=== PATIENT | male | born 1945 | race Caucasian/White ===

== ENCOUNTER 2016-03-11 12:41 | Inpatient (IN) | payer MEDICARE ==
[2016-03-11] MEDS ORDERED: IOPAMIDOL 300 (61%) 150 ML VIAL IV ONE (12:42)
[2016-03-11] MEDS ORDERED: SODIUM CHLORIDE 0.9% 2,000 ML ONE (12:55)
[2016-03-11] MEDS ORDERED: MORPHINE SULFATE 4 MG/ML SYRINGE ONE ×2 (13:13→15:36)
[2016-03-11] MEDS ORDERED: ONDANSETRON 4 MG/2ML 2 ML VIAL ONE (13:13)
[2016-03-11 13:21] LABS: ABSOLUTE NEUTROPHIL COUNT 16.4 K/mm3 (1.8-7.7); BASO % 0.2 % (0.2-1.0); HEMATOCRIT 48.7 % (32.0-52.0); HEMOGLOBIN 16.9 gm/l (14.0-18.0); IMM NEUT # 0.1 K/mm3 (0-0.2); IMM NEUT% 0.5 % (0-1); LYMPH # 0.9 (1.0-4.8); LYMPH % 4.7 % (15-45); MEAN CELL VOLUME 96.2 fl (80.0-94.0); MEAN CORPUSCULAR HEMOGLOBIN 33.4 pg (27.0-31.0); MEAN CORPUSCULAR HGB CONC 34.7 g/dl (33.0-37.0); MEAN PLATELET VOLUME 9.8 fl (7.4-10.4); MONO # 1.6 (0.0-0.8); MONO % 8.4 % (4-12); NEUT % 86.2 % (43-75); PLATELET COUNT 280 K/mm3 (130-400)
[2016-03-11 13:32] LABS: ALBUMIN 4.2 gm/dL (3.5-5.7); CALCIUM 11.3 mg/dL (8.6-10.3)
--- NOTE | 2016-03-11 14:56 | CT ---
NECK CT WITH CONTRAST HISTORY: Sore throat and abdominal pain. Following the administration of 125 mL of Isovue-300intravenous contrast, contiguous axial images were acquired from the the level of the lateral ventricles, to the level of the du. COMPARISON: None. FINDINGS: PHARYNX: No gross mass effect.. No retropharyngeal or parapharyngeal edema. LARYNX: Symmetric appearance, without abnormal enhancing lesion. PAROTID AND SUBMANDIBULAR GLANDS: No dominant focal lesion. THYROID GLAND: No focal lesion noted.. CERVICAL LYMPH NODES: No abnormally enlarged lymph nodes by radiologic size criteria. VISIBLE LUNGS: Limited assessment due to respiratory motion artifact there are findings of bronchial wall thickening with minor bulla formation of the right upper lobe. There is suggestion of minor airspace in bronchiolar type abnormality of the right upper lobe. VISIBLE MEDIASTINUM: Abnormal thickening of the esophagus with stranding of adjacent mediastinal fat which suggests a diffuse esophagitis, distal esophageal thickening is present on concurrent abdominal CT. VISIBLE INTRACRANIAL COMPARTMENT: No gross mass effect or abnormal enhancement. MAJOR VASCULAR STRUCTURES: Diminutive appearance of the upper internal jugular veins, of uncertain significance. Minor atherosclerotic calcification at the carotid bifurcations. OSSEOUS STRUCTURES: Focal cervical disc degeneration at C3-4. IMPRESSION: 1. No obvious pharyngeal or laryngeal mass. No regional abscess identified. Airway patent. 2. Diffuse esophageal wall thickening, correlate for esophagitis. The current study does not exclude an ulcerative lesion. Consider endoscopic correlation. The entirety of the esophagus is not depicted on this study. 3. Incompletely depicted bronchiolar and airspace type abnormality of the right upper lobe, early changes of right upper lobe pneumonia are possible. Bronchial wall thickening compatible with bronchitis. 4. Focal disc degeneration at the C3-4 level with prominent degeneration at the left C3-4 facet joint with irregularity of margins suggesting inflammatory facet arthropathy. 5. Minor atherosclerotic calcifications of carotid vasculature. Results were electronically transmitted to the electronic medical record at 03/11/2016 1452 hours.
--- NOTE | 2016-03-11 15:10 | CT ---
CT ABDOMEN AND PELVIS WITH CONTRAST HISTORY: Sore throat and abdominal pain. TECHNIQUE: Following intravenous administration of 125 mL Isovue-300, contiguous axial images were acquired from the lung bases to the ischial tuberosities. Oral contrast was not administered. COMPARISON:None. FINDINGS: LUNG BASES: No gross airspace consolidation or pleural effusion. Fibrotic atelectatic change of the lung bases with multiple small bullae identified. Note is made of distal esophageal wall thickening with inflammatory change, associated ulceration is possible. Small hiatal hernia. LIVER: Fatty infiltration of the liver. Dystrophic perihepatic calcifications. SPLEEN: No focal lesion. PANCREAS: No focal lesion. ADRENAL GLANDS: No mass effect. KIDNEYS: Heterogeneously enhancing 2.5 cm solid mass lesion of the upper left renal pole, worrisome for possible neoplasm. Multiple renal cysts measuring up to 1.9 cm on the left, exophytic cyst measuring 0.2 cm on the right. No collecting system dilatation 3 mm nonobstructive calculus of the left lower renal pole. GALLBLADDER: Endometrial versus irregular thickening, cholelithiasis or mass lesion are possible BOWEL: Decompression of large bowel limits evaluation. No small bowel dilatation is identified there is a postsurgical appearance of the colon correlate for partial colectomy and ileocolic anastomosis. PELVIC ORGANS: No gross mass effect. Small right posterolateral bladder diverticulum. FREE FLUID: No gross free fluid identified. Inguinal regions: Fatty inguinal hernia formation. ABDOMINOPELVIC LYMPH NODES: No abnormally enlarged lymph nodes identified. ABDOMINAL AORTA: Minor atherosclerotic calcifications without aneurysmal dilatation. OSSEOUS STRUCTURES: Disc degeneration with right paracentral herniation at L3-4 bulging at L4-5 canal stenosis levels. Prominent disc degeneration at L5-S1. Abnormal sclerotic lesion of the left femoral head, osteonecrosis is possible. IMPRESSION: 1. Abnormal wall thickening of the distal esophagus and a hiatal hernia, correlate for gastroesophagitis. Consider eventual endoscopic correlation. 2. Apparent solid 2.5 cm mass lesion of the left kidney, worrisome for neoplasm. Additional renal cysts and 3 mm nonobstructive left renal calculus. 3. Dependent content within the gallbladder, cholelithiasis and soft tissue lesion are possible. 4. Evidence of prior partial colectomy and ileocolonic anastomosis. Fluid within the colon may indicate diarrhea. 5. Lumbar spondylosis with multilevel disc degeneration and prominent canal stenosis at L3-4 and L4-5. 6. Irregular sclerotic lesion of the left femoral head raising the possibility of osteonecrosis. 7. Fibrotic changes at the bases of lungs with multifocal bulla formation. 8. Aortic atherosclerotic disease without aneurysmal dilatation. Findings discussed with Dr. Jaimes of the Emergency Medicine clinical service on 03/11/2016 at 1506 hours.
[2016-03-11] MEDS ORDERED: CEFTRIAXONE 1 GRAM DUPLEX 50 ML IV ONE (15:13)
[2016-03-11] MEDS ORDERED: AZITHROMYCIN 500 MG VIAL ONE (15:13)
[2016-03-11] MEDS ORDERED: SODIUM CHLORIDE 0.9% 1,000 ML ONE (15:36)
--- NOTE | 2016-03-11 16:36 | RAD ---
PORTABLE CHEST RADIOGRAPH HISTORY: Vomiting. Frontal portable chest radiograph dated 03/11/2016. COMPARISON: 12/25/2013. FINDINGS: FOCAL AIRSPACE OPACITY: No gross airspace consolidation. PLEURAL EFFUSION: None. CARDIOMEDIASTINAL SILHOUETTE: Nonenlarged. PNEUMOTHORAX: None identified. OSSEOUS STRUCTURES: No grossly destructive lesions. IMPRESSION: No acute cardiopulmonary process noted.
[2016-03-11] MEDS ORDERED: MENTHOL/CETYLPYRD 1 EACH LOZENGE PO PRN (17:06)
[2016-03-11] MEDS ORDERED: MAGNESIUM HYDROXIDE 30 ML UDCUP PO PRN (17:06)
[2016-03-11] MEDS ORDERED: BISACODYL 5 MG TABLET.EC PO PRN (17:06)
[2016-03-11] MEDS ORDERED: BISACODYL 10 MG SUP PR PRN (17:06)
[2016-03-11] MEDS ORDERED: SODIUM CHLORIDE 0.9% 100 ML IV PRN (17:06)
[2016-03-11] MEDS ORDERED: BLISTEX LIPSTICK 1 EACH TP PRN (17:06)
[2016-03-11] MEDS ORDERED: ALBUTEROL NEB 2.5 MG/3 ML VIAL.NEB NEB PRN (17:10)
[2016-03-11 17:23] LABS: ABSOLUTE NEUTROPHIL COUNT 12.7 K/mm3 (1.8-7.7); BASO % 0.1 % (0.2-1.0); HEMATOCRIT 44.4 % (32.0-52.0); HEMOGLOBIN 15.1 gm/l (14.0-18.0); IMM NEUT # 0.1 K/mm3 (0-0.2); IMM NEUT% 0.3 % (0-1); LYMPH # 0.4 (1.0-4.8); MEAN CELL VOLUME 98.4 fl (80.0-94.0); MEAN CORPUSCULAR HEMOGLOBIN 33.5 pg (27.0-31.0); MEAN PLATELET VOLUME 9.3 fl (7.4-10.4); MONO # 1.1 (0.0-0.8); MONO % 7.3 % (4-12); NEUT % 89.3 % (43-75); PLATELET COUNT 223 K/mm3 (130-400); RED CELL DISTRIBUTION WIDTH 12.9 % (11.5-14.5)
[2016-03-11] MEDS: PANTOPRAZOLE SODIUM 40 MG VIAL IV SCH (17:41)
[2016-03-11] MEDS ORDERED: AZITHROMYCIN 250 MG in SODIUM CHLORIDE 0.9% 250 ML IV SCH (18:00)
[2016-03-11 18:03] LABS: CALCIUM 9.2 mg/dL (8.6-10.3)
[2016-03-11 18:19] LABS: BAND 3 % (0-10); BASOPHIL 0 % (0-1); EOSINOPHIL 0 % (1-3); LYMPHOCYTE 6 % (15-45); MONOCYTE 4 % (4-12); NEUTROPHILS 87 % (43-75); PLATELET ESTIMATE NORMAL (NORMAL); TOTAL CELLS COUNTED 100
[2016-03-11] MEDS ORDERED: POTASSIUM CHLORIDE 40 MEQ in SODIUM CHLORIDE 0.9% 500 ML IV ONE (18:30)
[2016-03-11] MEDS ORDERED: SODIUM CHLORIDE 0.9% 1,000 ML IV SCH (18:30)
[2016-03-11] MEDS: HYDROMORPHONE HCL 1 MG/ML SYRINGE IV PRN (19:08)
[2016-03-11] MEDS: ONDANSETRON 4 MG/2ML 2 ML VIAL IV PRN ×2 (19:09→23:34)
[2016-03-11] MEDS: MULTIVITAMINS 10 ML, FOLIC ACID 2 MG, MAGNESIUM SULFATE 1 G/2 ML 2 G, THIAMINE HCL 100 ... IV SCH ×5 (19:31)
[2016-03-11] MEDS: SODIUM CHLORIDE 0.9% 1,000 ML IV SCH (19:48)
[2016-03-11] MEDS: MAGNESIUM SULFATE 1 G/100 ML 1 G in PREMIX BAG 1 EACH IV SCH ×2 (19:58→20:50)
[2016-03-12] MEDS: SODIUM CHLORIDE 0.9% 1,000 ML IV SCH ×3 (00:42→17:39)
--- NOTE | 2016-03-12 02:13 | HP ---
MAYANK ALAN [id number] ADMIT DATE: 03/11/2016 CHIEF COMPLAINT: Abdominal pain and weakness. HISTORY OF PRESENT ILLNESS: Mayank is a 70-year-old male with actually minimal medical history. He is presenting to the emergency room today with about a four day history of severe sore throat, severe midepigastric abdominal pain and onset of nausea and vomiting about one to two days ago. He has had similar symptoms in the past that have been attributed to "drinking too much". While in the waiting room of the ER he actually became weak and almost passed-out, and collapsed to the floor. He did not actually lose consciousness however. In the ER he was worked-up and found to have an elevated white count and possible infiltrate on chest x-ray, though no pulmonary symptoms, as well as just some severe abdominal pain, nausea and vomiting. It was felt he may have possible pneumonia, as well as esophagitis/gastritis as noted on CT scan. He also had an elevated lactate and there was concern about possible sepsis, and he was treated with aggressive IV fluid rehydration in the ER. It was elected to admit him to the Hospitalist Service for further workup and treatment. REVIEW OF SYSTEMS: No headache, no visual symptoms and no difficulty swallowing. He does complain of low back pain that is chronic, as well as severe abdominal pain in the midepigastrium. He is also nauseous and also has a severe sore throat. He has no headache and no visual symptoms. No actual chest pain. No heart palpitations. When he vomits he has not noted any blood. He has had no change in bowel habits or bladder habits. No extremity weakness, numbness, tingling or swelling, other than the diffuse weakness noted above. PAST MEDICAL HISTORY: 1. Chronic low back pain. 2. Migraine headaches. 3. History of bowel obstruction four to five years ago. PAST SURGICAL HISTORY: Partial colectomy secondary to bowel obstruction about four years ago as noted above. SOCIAL HISTORY: He does drink alcohol daily. No history of withdrawal. He has been admitted for abdominal pain related to alcohol intake by his report. He does occasionally use marijuana. He does not smoke. 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 FAMILY HISTORY: Noncontributory. ALLERGIES: No known drug allergies. CURRENT MEDICATIONS: 1. Ultram 50 mg by mouth twice a day. 2. Nortriptyline as needed for migraines. OBJECTIVE: VITAL SIGNS: Blood pressure 141/82. Pulse is 97 and regular. Respirations 24. His O2 sat is 100% on room air. GENERAL: A thin, cachectic-appearing male. He appears older than his stated age. He is alert, but speaking in a whisper secondary to his sore throat. HEENT: Benign. TMs are clear. Oropharynx mucosa with poor dentition, but no overt abnormalities in the posterior oropharynx. NECK: Supple, without lymphenopathy. LUNGS: Clear. With no obvious wheezes, rales or rhonchi. HEART: Heart. Regular rhythm. He is tender in the mid midepigastrium. There is no organomegaly. Bowel tones are positive. EXTREMITIES; No edema. LABS: CBC with a white count of 19.0. Differential is pending. Hemoglobin 16.9, hematocrit 48.7 and platelets of 280. MCV is elevated at 96.2. Chemistry panel; sodium 136, potassium 3.2, chloride 89, carbon dioxide 28, BUN of 39, creatinine 1.8 and glucose of 178. AST of 43, ALT of 18, alkaline phosphatase of 96, troponin 0.06 and lipase of 9. Urinalysis is pending. IMAGIN. Chest x-ray shows a normal cardiac silhouette. No infiltrates or effusions. 2. Abdominopelvic CT scan does show rather marked thickening of the distal esophagus, with a hiatal hernia, consistent with gastroesophagitis. There is an incidental finding of a 2.5 cm mass on the left kidney concerning for neoplasm. 3. A soft tissue neck CT shows no obvious pharyngeal or laryngeal mass. No abscess. Esophagitis is noted again. On this view of the CT scan there is concern for early right upper lobe pneumonia, with a potentially early infiltrate or compatible with bronchitis. ASSESSMENT: 1. Abdominal pain. This appears to be most consistent with alcohol related gastritis/esophagitis. By report he has had this in the past. It is unclear whether he has ever had an endoscopy. 2. Community-acquired pneumonia. There was concern about an infiltrate on the right upper lobe and he was started on antibiotics in the ER, however, he has no pulmonary symptoms and a clear lung exam. I do not believe that he does have community-acquired pneumonia at this point. Will continue on his antibiotics for now since it has been started and recheck a chest x-ray in the morning after he has been rehydrated. 3. Presumed alcoholism. 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 We will go ahead and place him on [facility] protocol. We will attempt to get records from the [place] to further clarify his history. 4. Acute kidney injury. His creatinine is elevated at 1.8. I do not know what his baseline is. Again, will obtain records. Reevaluate after he has been rehydrated. 5. Chronic low back pain. Appears to be at baseline. PLAN: 1. Protonix IV twice a day. 2. Supportive care. 3. Antibiotics as above. 4. Will hold-off on DVT prophylaxis given the concern for possible GI bleed and given his alcoholic gastritis. Consider EGD. 5. Supportive care otherwise. cc: [facility]
[2016-03-12] MEDS: PANTOPRAZOLE SODIUM 40 MG VIAL IV SCH ×2 (05:06→17:40)
[2016-03-12] MEDS: ONDANSETRON 4 MG/2ML 2 ML VIAL IV PRN ×2 (05:26→15:20)
[2016-03-12 05:45] LABS: ABSOLUTE NEUTROPHIL COUNT 10.8 K/mm3 (1.8-7.7); BASO % 0.1 % (0.2-1.0); HEMATOCRIT 39.3 % (32.0-52.0); IMM NEUT% 0.2 % (0-1); LYMPH # 0.8 (1.0-4.8); LYMPH % 6.3 % (15-45); MEAN CELL VOLUME 100.8 fl (80.0-94.0); MEAN CORPUSCULAR HEMOGLOBIN 33.3 pg (27.0-31.0); MEAN CORPUSCULAR HGB CONC 33.1 g/dl (33.0-37.0); MEAN PLATELET VOLUME 9.4 fl (7.4-10.4); MONO # 0.9 (0.0-0.8); MONO % 7.2 % (4-12); NEUT % 86.2 % (43-75); PLATELET COUNT 189 K/mm3 (130-400); RED CELL DISTRIBUTION WIDTH 13.4 % (11.5-14.5)
[2016-03-12 06:07] LABS: ALB/GLOB RATIO 0.9 (>1.0); CALCIUM 8.3 mg/dL (8.6-10.3); MAGNESIUM 2.5 mg/dL (1.9-2.7)
[2016-03-12] MEDS ORDERED: PROMETHAZINE HCL 25 MG/ML VIAL ONE (08:01)
[2016-03-12] MEDS ORDERED: PROMETHAZINE HCL 25 MG/ML VIAL IV PRN (08:04)
[2016-03-12] MEDS: LORAZEPAM 2 MG/ML 1ML SDV IV PRN ×2 (08:26→21:17)
[2016-03-12] MEDS: HYDROMORPHONE HCL 1 MG/ML SYRINGE IV PRN ×4 (08:34→21:17)
--- NOTE | 2016-03-12 09:00 | RAD ---
EXAMINATION : CHEST-AP BEDSIDE HISTORY: Follow-up pneumonia symptoms. COMPARISONS: 03/11/2016. FINDINGS: The cardiomediastinal silhouette is unaltered from prior examination. Minimal right basilar opacity is noted. This may reflect mild atelectasis. This appears new in comparison to the prior study. No dense consolidation is identified. No gross effusion is identified. The osseous structures are within normal limits. IMPRESSION: Stable senescent changes of the thorax with developing right basilar opacity/atelectasis. No dense consolidation or gross effusion is identified.
[2016-03-12] MEDS ORDERED: PROMETHAZINE HCL 6.25 MG in SODIUM CHLORIDE 0.9% 50 ML IV PRN (09:22)
--- NOTE | 2016-03-12 12:20 | PDOC43 ---
- Subjective Chief Complaint: Abd pain, N/V Still with N/V overnight but beter with meds. Abd pain better with meds. Subjective: Denies Shortness of Breath, Denies Cough, Denies Chest Pain, Denies Fever, Denies Chills - Objective Vital Signs Temperature 97.6 F 03/12/16 11:20 Pulse Rate 76 03/12/16 11:20 Respiratory Rate 16 03/12/16 11:20 Blood Pressure 120/62 03/12/16 11:20 O2 Saturation by Pulse Oximetry 100 03/12/16 11:21 Oxygen Delivery Method Room Air Oxygen Flow Rate 0 Intake and Output 03/11/16 03/12/16 03/13/16 06:59 06:59 06:59 Intake Total 5744 Output Total 2940 Balance 2804 General: Alert, Oriented x3, Cooperative, Mild Distress Lungs: Other (B basilar rales) Cardiovascular: Regular Rate and Rhythm Abdomen: Soft, Tenderness (Diffusely tender.), Normal Bowel Sounds, Non- Distended, No Rebounding, No Involuntary Guarding Extremities: Normal Pulses, No Edema, No Tenderness Laboratory 03/12/16 05:18 03/12/16 05:18 03/12/16 03/11/16 03/11/16 05:18 17:40 17:20 RBC 3.90 L 4.51 L MCV 100.8 H 98.4 H MCH 33.3 H 33.5 H VBG Lactate 2.3 H Anion Gap 7 L BUN 27 H 33 H Estimated GFR 50 L 46 L Calcium 8.3 L Phosphorus 2.3 L Magnesium 1.1 L Albumin 3.0 L Albumin/Globulin Ratio 0.9 L Laboratory Tests 03/12/16 05:18 VBG Lactate 0.7 Current Medications: Current meds reviewed in EMR. - Problems: Assessment/Plan (1) CAP (community acquired pneumonia) Status: Acute Assessment/Plan: Presumed bacterial with concern for aspiration given ETOH history and N/V. Minimal pulm s/sx. Con't rocephin/azithro and add Flagyl d/t concern for aspiration. Await cx results. (2) Abdominal pain Qualifiers: Abdominal location: epigastric Qualifier Code: (R10.13) Epigastric pain Status: Acute Assessment/Plan: Mid-epigastric pain with N/V is primary c/o. CT c/w marked gastritis/ esophagitis. As per [place] records had EGD/Colonoscopy last year for the same thing. Presumed recurrent esophagitis/gastritis exacerbated by ETOH and NSAID use. Con't bid IV protonix and supportive care. Will hold off on repeat endoscopy given just done last year. (3) Alcohol abuse Status: Chronic Assessment/Plan: No hx of withdrawal. Supportive care. [facility] protocol prn. (4) CKD (chronic kidney disease), stage III Status: Chronic Assessment/Plan: At baseline. (5) Chronic low back pain Qualifiers: Back pain laterality: unspecified Status: Chronic Assessment/Plan: As per records from [place]- longstanding and fairly severe. S/P back surgery 03/23 at [place]. Chronic pain issues. Supportive care. (6) Hepatitis C Qualifiers: Viral hepatitis chronicity: chronic Status: Chronic Assessment/Plan: As per [place] records- Long standing. Hx of liver bx in 2005. Supportive care. VTE Prophylaxis: Mechanical. Disposition: Anticipate d/c home n 2-3 days.
[2016-03-12] MEDS ORDERED: POTASSIUM CHLORIDE 20 MEQ in SODIUM CHLORIDE 0.9% 250 ML IV ONE (13:00)
[2016-03-12] MEDS ORDERED: FLU VACC 2016-17 (65 YR+)/PF 180 MCG/0.5 ML SYRINGE IM V ONE (13:02)
[2016-03-12] MEDS ORDERED: PNEUMOCOCCAL 23-VAL P-SAC VAC 0.5 ML VIAL IM V ONE (13:02)
[2016-03-12] MEDS: METRONIDAZOLE 500 MG/NS 100 ML 500 MG in Premix (NS) 100 ml 1 EACH IV SCH ×2 (13:06→20:08)
[2016-03-12] MEDS: CEFTRIAXONE 1 GRAM DUPLEX 1 G in Premix (D5W) 50 ml 1 EACH IV SCH (15:37)
[2016-03-12] MEDS: AZITHROMYCIN 500 MG in SODIUM CHLORIDE 0.9% 250 ML IV SCH ×3 (16:33)
[2016-03-12] MEDS: MULTIVITAMINS 10 ML, FOLIC ACID 2 MG, MAGNESIUM SULFATE 1 G/2 ML 2 G, THIAMINE HCL 100 ... IV SCH ×5 (21:09)
[2016-03-13] MEDS: LORAZEPAM 2 MG/ML 1ML SDV IV PRN ×6 (00:41→23:49)
[2016-03-13] MEDS: HYDROMORPHONE HCL 2 MG/ML SYRINGE IV PRN ×3 (00:42→04:55)
[2016-03-13] MEDS: SODIUM CHLORIDE 0.9% 1,000 ML IV SCH ×4 (01:15→18:18)
[2016-03-13] MEDS: PANTOPRAZOLE SODIUM 40 MG VIAL IV SCH ×2 (04:54→17:24)
[2016-03-13] MEDS: METRONIDAZOLE 500 MG/NS 100 ML 500 MG in Premix (NS) 100 ml 1 EACH IV SCH ×3 (04:54→20:30)
[2016-03-13] MEDS ORDERED: OXYCODONE HCL 5 MG TABLET PO PRN (07:14)
[2016-03-13] MEDS: DIPHENHYDRAMINE HCL 25 MG CAPSULE PO PRN ×3 (07:23→23:49)
--- NOTE | 2016-03-13 11:49 | PDOC43 ---
- Subjective Chief Complaint: Abd pain, N/V Patient reported by RN to be quite restless and itchy this am, did get dilaudid last night, more recently oxycodone. Some hives, redness noted. Pt got benadryl and ativan this am, with some improvement in hives, itching, restlessness. Some stomach upset reported. No respiratory c/o. - Objective Vital Signs Temperature 99 F 03/13/16 11:10 Pulse Rate 88 03/13/16 11:10 Respiratory Rate 14 03/13/16 11:10 Blood Pressure 133/79 03/13/16 11:10 O2 Saturation by Pulse Oximetry 96 03/13/16 11:10 Oxygen Delivery Method Room Air Oxygen Flow Rate 0 Vital Signs Last 12 Hours Temp Pulse Resp BP Pulse Ox 03/13/16 11:10 99 F 88 14 133/79 96 03/13/16 11:00 88 14 133/79 96 03/13/16 07:00 99 F 100 26 133/69 97 03/13/16 03:52 97.1 F 70 18 129/67 96 03/13/16 03:00 99 03/13/16 02:00 19 03/12/16 23:58 99.7 F 90 19 113/96 99 Intake and Output 03/11/16 03/12/16 03/13/16 23:59 23:59 23:59 Intake Total 3000 4365 2180 Output Total 2140 1700 800 Balance 860 2665 1380 Intake & Output 03/12/16 03/13/16 03/13/16 23:59 07:59 15:59 Intake Total 1621 2180 Output Total 900 800 Balance 721 1380 Intake: PO Intake 400 700 IV Fluids 1221 1480 Output: Ac Output 900 800 General: Mild Distress (some distress, related to itching.), Other Lungs: Clear to Auscultation Bilaterally, Normal Air Movement Cardiovascular: Regular Rate and Rhythm Abdomen: Soft, No Tenderness, No Rebounding, No Involuntary Guarding (but difficulty assessing, pt curled up in chair.) Extremities: No Edema, No Tenderness Skin: Other (mild diffuse urticaria suggested.) Neurological: Normal Speech Psych/Mental Status: Other (sleepy affect, doesn't always respond to questions. No tremor noted. Itching/scratching some.) Laboratory 03/12/16 05:18 03/12/16 05:18 Current Medications: Current meds reviewed in EMR. Active Medications Albuterol Sulfate (Ventolin Inhalation Solution (Dose)) 2.5 mg NEB Q2H PRN PRN Reason: Wheezing Benzocaine/Menthol (Cepacol) 1 each PO PRN PRN PRN Reason: Sore Throat Bisacodyl (Dulcolax) 10 mg [place] DAILY PRN PRN Reason: Constipation Bisacodyl (Dulcolax) 5 mg PO DAILY PRN PRN Reason: Constipation Diphenhydramine HCl (Benadryl) 25 mg PO Q4H PRN PRN Reason: Itching Last Admin: 03/13/16 07:23 Dose: 25 mg Multivitamins/Minerals 10 ml/Folic Acid 2 mg/ Magnesium Sulfate 2 g/ Thiamine HCl 100 mg/ Sodium Chloride 1,015.4 mls @ 100 mls/hr IV Q24H [facility] Last Admin: 03/12/16 21:09 Dose: 100 mls/hr Sodium Chloride (Sodium Chloride 0.9%) 100 mls @ 25 mls/hr IV PRN PRN PRN Reason: Flush Sodium Chloride (Sodium Chloride 0.9%) 1,000 mls @ 125 mls/hr IV .Q8H [facility] Last Admin: 03/13/16 09:55 Dose: 125 mls/hr Azithromycin 500 mg/ Sodium (Chloride) 250 mls @ 250 mls/hr IV Q24H [facility] Stop: 03/14/16 16:29 Last Admin: 03/12/16 16:33 Dose: 250 mls/hr Ceftriaxone Sodium/Dextrose 1 (g/ Premix (D5W) 50 ml) 50 mls @ 100 mls/hr IV Q24H [facility] Last Admin: 03/12/16 15:37 Dose: 100 mls/hr Promethazine HCl 6.25 mg/ (Sodium Chloride) 50.25 mls @ 200 mls/hr IV Q4H PRN PRN Reason: Nausea/Vomiting Last Admin: 03/12/16 20:36 Dose: 200 mls/hr Metronidazole 500 mg/ Sodium (Chloride) 100 mls @ 200 mls/hr IV Q8H [facility] Last Admin: 03/13/16 04:54 Dose: 200 mls/hr Lorazepam (Ativan) 0 mg IV PRN PRN; Protocol PRN Reason: Alcohol Withdrawal Last Admin: 03/13/16 11:12 Dose: 1 mg Magnesium Hydroxide (Milk Of Magnesia) 30 ml PO DAILY PRN PRN Reason: Constipation Ondansetron HCl (Zofran) 4 mg IV Q3H PRN PRN Reason: Nausea/Vomiting Last Admin: 03/12/16 15:20 Dose: 4 mg Oxycodone HCl (Roxicodone) 5 mg PO Q3H PRN PRN Reason: Pain Pantoprazole Sodium (Protonix) 40 mg IV Q12H [facility] Last Admin: 03/13/16 04:54 Dose: 40 mg Petrolatum/Paraffin/Mineral Oil (Blistex) 1 each TP PRN PRN PRN Reason: Dry and/or chapped lips Sodium Chloride (Normal Saline 10ml Flush) 10 - 50 ml IV PRN PRN PRN Reason: IV Flush Last Admin: 03/13/16 11:13 Dose: 3 ml Sodium Chloride (Normal Saline 10ml Flush) 10 ml IV Q8HR [facility] Last Admin: 03/13/16 00:41 Dose: 10 ml - Problems: Assessment/Plan (1) CAP (community acquired pneumonia) Status: Acute Assessment/Plan: Presumed bacterial with concern for aspiration given ETOH history and N/V. Minimal pulm s/sx. Con't rocephin/azithro and add Flagyl d/t concern for aspiration. Blood culture with [facility] in clusters - waiting to see if coag neg Staph vs other. R basilar opacity/atelectasis suggested on CXR yesterday. (2) Abdominal pain Qualifiers: Abdominal location: epigastric Qualifier Code: (R10.13) Epigastric pain Status: Acute Assessment/Plan: Mid-epigastric pain with N/V is primary c/o. CT c/w marked gastritis/ esophagitis. Lipase not elevated. [facility]Colon[facility] last year for the same thing. Presumed recurrent esophagitis/gastritis exacerbated by ETOH and NSAID use. Con't bid IV protonix and supportive care. Will hold off on repeat endoscopy given just done last year. (3) Alcohol abuse Status: Chronic Assessment/Plan: No hx of withdrawal. Supportive care. [place] protocol prn. (4) CKD (chronic kidney disease), stage III Status: Chronic Assessment/Plan: Cr 1.8->1.4 At baseline. (5) Chronic low back pain Qualifiers: Back pain laterality: unspecified Status: Chronic Assessment/Plan: As per records from [place]- longstanding and fairly severe. S/P back surgery 03/23 at [place]. Chronic pain issues. Supportive care. (6) Hepatitis C Qualifiers: Viral hepatitis chronicity: chronic Status: Chronic Assessment/Plan: As per [place] records- Long standing. Hx of liver bx in 2005. Supportive care. (7) Itching due to drug Status: Suspected Assessment/Plan: Suspected related to pain medication, but antibiotics would be alternate consideration. Benadryl given, anticipate continuing. Plan DC oxycodone, switch to ultram (med pt on as outpt). If itching continues, would consider further med revision. VTE Prophylaxis: Mechanical. Disposition: Hope to return to home in 1-2 days, waiting on blood culture results.
[2016-03-13 12:17] LABS: HEMATOCRIT 39.4 % (32.0-52.0); HEMOGLOBIN 12.7 gm/l (14.0-18.0); MEAN CELL VOLUME 103.4 fl (80.0-94.0); MEAN CORPUSCULAR HEMOGLOBIN 33.3 pg (27.0-31.0); MEAN CORPUSCULAR HGB CONC 32.2 g/dl (33.0-37.0); RED CELL DISTRIBUTION WIDTH 13.6 % (11.5-14.5)
[2016-03-13 12:48] LABS: ALB/GLOB RATIO 0.9 (>1.0); CALCIUM 7.9 mg/dL (8.6-10.3)
[2016-03-13] MEDS: ONDANSETRON 4 MG/2ML 2 ML VIAL IV PRN (13:01)
[2016-03-13] MEDS: CEFTRIAXONE 1 GRAM DUPLEX 1 G in Premix (D5W) 50 ml 1 EACH IV SCH (16:32)
[2016-03-13] MEDS: AZITHROMYCIN 500 MG in SODIUM CHLORIDE 0.9% 250 ML IV SCH ×3 (16:56)
[2016-03-13] MEDS: TRAMADOL HCL 50 MG TABLET PO PRN (18:02)
[2016-03-13] MEDS: MULTIVITAMINS 10 ML, FOLIC ACID 2 MG, MAGNESIUM SULFATE 1 G/2 ML 2 G, THIAMINE HCL 100 ... IV SCH ×5 (18:59)
[2016-03-14] MEDS: METRONIDAZOLE 500 MG/NS 100 ML 500 MG in Premix (NS) 100 ml 1 EACH IV SCH ×3 (04:38→20:16)
[2016-03-14] MEDS: PANTOPRAZOLE SODIUM 40 MG VIAL IV SCH ×2 (04:38→17:34)
[2016-03-14] MEDS: LORAZEPAM 2 MG/ML 1ML SDV IV PRN (04:38)
[2016-03-14] MEDS: SODIUM CHLORIDE 0.9% 1,000 ML IV SCH ×3 (04:39→18:28)
[2016-03-14] MEDS: DIPHENHYDRAMINE HCL 25 MG CAPSULE PO PRN (04:39)
[2016-03-14 06:31] LABS: ABSOLUTE NEUTROPHIL COUNT 6.2 K/mm3 (1.8-7.7); BASO % 0.4 % (0.2-1.0); EOS # 0.1 (0.0-0.5); EOS % 1.8 % (0.9-2.9); HEMATOCRIT 37.5 % (32.0-52.0); HEMOGLOBIN 12.5 gm/l (14.0-18.0); IMM NEUT% 0.3 % (0-1); LYMPH # 0.5 (1.0-4.8); LYMPH % 6.9 % (15-45); MEAN CELL VOLUME 101.1 fl (80.0-94.0); MEAN CORPUSCULAR HEMOGLOBIN 33.7 pg (27.0-31.0); MEAN CORPUSCULAR HGB CONC 33.3 g/dl (33.0-37.0); MEAN PLATELET VOLUME 10.5 fl (7.4-10.4); MONO # 0.8 (0.0-0.8); MONO % 9.8 % (4-12); NEUT % 80.8 % (43-75); PLATELET COUNT 104 K/mm3 (130-400); RED CELL DISTRIBUTION WIDTH 13.2 % (11.5-14.5)
[2016-03-14] MEDS: TRAMADOL HCL 50 MG TABLET PO PRN ×3 (06:59→23:06)
[2016-03-14 07:47] LABS: ALBUMIN 2.7 gm/dL (3.5-5.7); CALCIUM 7.7 mg/dL (8.6-10.3); MAGNESIUM 2.3 mg/dL (1.9-2.7)
[2016-03-14] MEDS ORDERED: SODIUM CHLORIDE 0.9% FLUSH 10 ML ONE (10:44)
[2016-03-14] MEDS ORDERED: IV START KIT ONE (10:44)
--- NOTE | 2016-03-14 12:02 | PDOC43 ---
- Subjective Chief Complaint: Abd pain, N/V RN reports pt woke up, had a large black stool, heme+. Pt not itching like yesterday. IV on L arm stopped due to irritation. RN reports pt c/o burning stomach. Patient resting, but reports main complaint is LUQ pain, burning. He asks to be put asleep so he doesn't have to have pain. - Objective Vital Signs Temperature 97.8 F 03/14/16 07:00 Pulse Rate 80 03/14/16 07:00 Respiratory Rate 17 03/14/16 07:00 Blood Pressure 133/75 03/14/16 07:00 O2 Saturation by Pulse Oximetry 97 03/14/16 08:39 Oxygen Delivery Method Room Air Oxygen Flow Rate 0 Vital Signs Last 12 Hours Temp Pulse Resp BP Pulse Ox 03/14/16 08:39 97 03/14/16 07:00 97.8 F 80 17 133/75 97 03/14/16 03:10 98.4 F 80 18 118/76 97 03/13/16 23:35 98.0 F 88 16 145/81 97 Intake and Output 03/12/16 03/13/16 03/14/16 23:59 23:59 23:59 Intake Total 4365 3319 1961 Output Total 6268 215 3585 Balance 2665 9671 711 General: Other (mild distress, sl sleepy, but can answer ok, sl [place].) Lungs: Clear to Auscultation Bilaterally (generally CTA bilat.) Cardiovascular: Regular Rate and Rhythm Abdomen: Normal Bowel Sounds, Other (well healed surgical incision on midline of abdomen. BS quiet. Reported tender LUQ, no overt rebound tenderness, guarding.) Genitourinary: Normal Male Genitalia (perry in) Rectal Exam: Guaiac Positive (reported) Extremities: No Edema Skin: Other (Rash resolved.) Psych/Mental Status: Other (Sleepy affect, but able to answer questions, sometimes needs them repeated.) Laboratory 03/14/16 06:00 03/14/16 06:00 03/14/16 03/13/16 06:00 12:00 RBC 3.71 L 3.81 L MCV 101.1 H 103.4 H MCH 33.7 H 33.3 H MCHC 32.2 L Estimated GFR 50 L 55 L Calcium 7.7 L 7.9 L Phosphorus 2.1 L AST 45 H Total Protein 5.3 L 6.2 L Albumin 2.7 L 3.0 L Albumin/Globulin Ratio 0.9 L Current Medications: Current meds reviewed in EMR. Active Medications Albuterol Sulfate (Ventolin Inhalation Solution (Dose)) 2.5 mg NEB Q2H PRN PRN Reason: Wheezing Benzocaine/Menthol (Cepacol) 1 each PO PRN PRN PRN Reason: Sore Throat Bisacodyl (Dulcolax) 10 mg NE DAILY PRN PRN Reason: Constipation Bisacodyl (Dulcolax) 5 mg PO DAILY PRN PRN Reason: Constipation Diphenhydramine HCl (Benadryl) 25 mg PO Q4H PRN PRN Reason: Itching Last Admin: 03/14/16 04:39 Dose: 25 mg Multivitamins/Minerals 10 ml/Folic Acid 2 mg/ Magnesium Sulfate 2 g/ Thiamine HCl 100 mg/ Sodium Chloride 1,015.4 mls @ 100 mls/hr IV Q24H [facility] Last Admin: 03/13/16 18:59 Dose: 100 mls/hr Sodium Chloride (Sodium Chloride 0.9%) 100 mls @ 25 mls/hr IV PRN PRN PRN Reason: Flush Sodium Chloride (Sodium Chloride 0.9%) 1,000 mls @ 125 mls/hr IV .Q8H [facility] Last Admin: 03/14/16 04:39 Dose: 125 mls/hr Azithromycin 500 mg/ Sodium (Chloride) 250 mls @ 250 mls/hr IV Q24H [facility] Stop: 03/14/16 16:29 Last Admin: 03/13/16 16:56 Dose: 250 mls/hr Ceftriaxone Sodium/Dextrose 1 (g/ Premix (D5W) 50 ml) 50 mls @ 100 mls/hr IV Q24H [facility] Last Admin: 03/13/16 16:32 Dose: 100 mls/hr Promethazine HCl 6.25 mg/ (Sodium Chloride) 50.25 mls @ 200 mls/hr IV Q4H PRN PRN Reason: Nausea/Vomiting Last Admin: 03/12/16 20:36 Dose: 200 mls/hr Metronidazole 500 mg/ Sodium (Chloride) 100 mls @ 200 mls/hr IV Q8H [facility] Last Admin: 03/14/16 04:38 Dose: 200 mls/hr Lorazepam (Ativan) 0 mg IV PRN PRN; Protocol PRN Reason: Alcohol Withdrawal Last Admin: 03/14/16 04:38 Dose: 1 mg Magnesium Hydroxide (Milk Of Magnesia) 30 ml PO DAILY PRN PRN Reason: Constipation Ondansetron HCl (Zofran) 4 mg IV Q3H PRN PRN Reason: Nausea/Vomiting Last Admin: 03/13/16 13:01 Dose: 4 mg Pantoprazole Sodium (Protonix) 40 mg IV Q12H [facility] Last Admin: 03/14/16 04:38 Dose: 40 mg Petrolatum/Paraffin/Mineral Oil (Blistex) 1 each TP PRN PRN PRN Reason: Dry and/or chapped lips Sodium Chloride (Normal Saline 10ml Flush) 10 - 50 ml IV PRN PRN PRN Reason: IV Flush Last Admin: 03/14/16 04:39 Dose: 10 ml Sodium Chloride (Normal Saline 10ml Flush) 10 ml IV Q8HR [facility] Last Admin: 03/14/16 10:15 Dose: Not Given Tramadol HCl (Ultram) 50 mg PO Q4H PRN PRN Reason: Pain Last Admin: 03/14/16 06:59 Dose: 50 mg - Problems: Assessment/Plan (1) CAP (community acquired pneumonia) Status: Acute Assessment/Plan: Presumed bacterial with concern for aspiration given ETOH history and N/V. Minimal pulm s/sx. Con't rocephin/azithro and add Flagyl d/t concern for aspiration. Blood culture with GPC in clusters - Staph epidermidis on culture. R basilar opacity/atelectasis suggested on CXR. (2) Abdominal pain Qualifiers: Abdominal location: epigastric Qualifier Code: (R10.13) Epigastric pain Status: Acute Assessment/Plan: Mid-epigastric pain continues as primary c/o. CT c/w marked gastritis/ esophagitis. Lipase not elevated. [facility] year for the same thing. Presumed recurrent esophagitis/gastritis exacerbated by ETOH and NSAID use. Continuing bid IV protonix and supportive care. With ongoing sx, consider recheck labs, and consider for repeat upper endoscopy. (3) Alcohol abuse Status: Chronic Assessment/Plan: No hx of withdrawal. Supportive care. [facility] protocol prn. (4) CKD (chronic kidney disease), stage III Status: Chronic Assessment/Plan: Cr 1.8->1.4 At baseline. (5) Chronic low back pain Qualifiers: Back pain laterality: unspecified Status: Chronic Assessment/Plan: As per records from [place]- longstanding and fairly severe. S/P back surgery 03/23 at [place]. Chronic pain issues. Supportive care. (6) Hepatitis C Qualifiers: Viral hepatitis chronicity: chronic Status: Chronic Assessment/Plan: As per [facility] records- Long standing. Hx of liver bx in 2005. Supportive care. (7) Itching due to drug Status: Resolved Assessment/Plan: Suspected related to pain medication, resolved today (03/14). DCd oxycodone, switched to ultram (med pt on as outpt). (8) Renal mass Status: Acute Assessment/Plan: noted on CT. Will need follow up. VTE Prophylaxis: Mechanical. Disposition: Hope to return to home in 1-2 days
[2016-03-14] MEDS ORDERED: PUMP TUBING ONE (13:11)
[2016-03-14] MEDS: CEFTRIAXONE 1 GRAM DUPLEX 1 G in Premix (D5W) 50 ml 1 EACH IV SCH (15:29)
[2016-03-14] MEDS: ONDANSETRON 4 MG/2ML 2 ML VIAL IV PRN (15:30)
[2016-03-14] MEDS: AZITHROMYCIN 500 MG in SODIUM CHLORIDE 0.9% 250 ML IV SCH ×3 (15:54)
[2016-03-14 16:16] LABS: HEMATOCRIT 34.1 % (32.0-52.0); HEMOGLOBIN 11.4 gm/l (14.0-18.0)
[2016-03-14] MEDS: MULTIVITAMINS 10 ML, FOLIC ACID 2 MG, MAGNESIUM SULFATE 1 G/2 ML 2 G, THIAMINE HCL 100 ... IV SCH ×5 (20:16)
[2016-03-15] MEDS: LORAZEPAM 2 MG/ML 1ML SDV IV PRN (01:47)
[2016-03-15] MEDS: DIPHENHYDRAMINE HCL 25 MG CAPSULE PO PRN ×2 (04:01→09:26)
[2016-03-15] MEDS: TRAMADOL HCL 50 MG TABLET PO PRN ×3 (04:01→21:18)
[2016-03-15] MEDS: METRONIDAZOLE 500 MG/NS 100 ML 500 MG in Premix (NS) 100 ml 1 EACH IV SCH (04:43)
[2016-03-15] MEDS: PANTOPRAZOLE SODIUM 40 MG VIAL IV SCH (04:44)
[2016-03-15 06:02] LABS: ABSOLUTE NEUTROPHIL COUNT 5.2 K/mm3 (1.8-7.7); BASO % 0.4 % (0.2-1.0); EOS # 0.3 (0.0-0.5); EOS % 3.9 % (0.9-2.9); HEMATOCRIT 33.9 % (32.0-52.0); HEMOGLOBIN 11.4 gm/l (14.0-18.0); IMM NEUT% 0.6 % (0-1); LYMPH # 0.5 (1.0-4.8); LYMPH % 6.8 % (15-45); MEAN CORPUSCULAR HEMOGLOBIN 33.6 pg (27.0-31.0); MEAN CORPUSCULAR HGB CONC 33.6 g/dl (33.0-37.0); MONO # 1.1 (0.0-0.8); MONO % 15.9 % (4-12); NEUT % 72.4 % (43-75); PLATELET COUNT 143 K/mm3 (130-400); RED CELL DISTRIBUTION WIDTH 12.7 % (11.5-14.5)
[2016-03-15 06:30] LABS: ALB/GLOB RATIO 1.2 (>1.0); ALBUMIN 2.8 gm/dL (3.5-5.7); CALCIUM 8.1 mg/dL (8.6-10.3)
[2016-03-15] MEDS ORDERED: LACTATED RINGERS 1,000 ML IV SCH (06:45)
[2016-03-15] MEDS: SODIUM CHLORIDE 0.9% 1,000 ML IV SCH ×2 (07:14→08:51)
[2016-03-15] MEDS ORDERED: PROPOFOL 20 ML IV ONE (07:56)
[2016-03-15] MEDS ORDERED: LIDOCAINE Viscous 2% 15 ML UDCUP PO PRN (07:56)
[2016-03-15] MEDS ORDERED: PRIMARY W/MICRODRIP 60 DROPS/ML ONE (07:56)
[2016-03-15] MEDS ORDERED: IV START KIT ONE (08:22)
--- NOTE | 2016-03-15 11:45 | PDOC43 ---
- Subjective Chief Complaint: Abd pain, N/V Dr Pham reports some severe esophagitis on endoscopy today, but NO varices, and not suggestive of malignancy. Rec'd adding carafate. Patient sitting up on edge of bed, eating clear liquid diet. Alert, awake. Was able to walk to bathroom. - Objective Vital Signs Temperature 97.7 F 03/15/16 09:00 Pulse Rate 67 03/15/16 09:00 Respiratory Rate 14 03/15/16 09:00 Blood Pressure 137/80 03/15/16 09:00 O2 Saturation by Pulse Oximetry 100 03/15/16 09:00 Oxygen Delivery Method Room Air Oxygen Flow Rate 0 Vital Signs Last 12 Hours Temp Pulse Resp BP Pulse Ox 03/15/16 09:00 97.7 F 67 14 137/80 100 03/15/16 08:00 98 03/15/16 07:00 97.9 F 80 20 140/89 98 03/15/16 03:00 97.8 F 78 20 138/78 98 Intake and Output 03/13/16 03/14/16 03/15/16 23:59 23:59 23:59 Intake Total 3319 3902 1593 Output Total 800 3200 1850 Balance 2519 702 -257 General: Alert, Cooperative Lungs: Clear to Auscultation Bilaterally, Normal Air Movement Cardiovascular: Regular Rate and Rhythm Abdomen: Soft, Tenderness (reported on light palpation, probably more than would be expected for diagnoses so far.) Extremities: No Edema Skin: Normal Color Neurological: Normal Speech Psych/Mental Status: Other (alert, appears at ease. Responds appropriately.) Laboratory 03/15/16 05:30 03/15/16 05:30 03/15/16 05:30 RBC 3.39 L MCV 100.0 H MCH 33.6 H Calcium 8.1 L Total Protein 5.2 L Albumin 2.8 L Current Medications: Current meds reviewed in EMR. Active Medications Albuterol Sulfate (Ventolin Inhalation Solution (Dose)) 2.5 mg NEB Q2H PRN PRN Reason: Wheezing Benzocaine/Menthol (Cepacol) 1 each PO PRN PRN PRN Reason: Sore Throat Last Admin: 03/15/16 01:42 Dose: 1 each Bisacodyl (Dulcolax) 10 mg [place] DAILY PRN PRN Reason: Constipation Bisacodyl (Dulcolax) 5 mg PO DAILY PRN PRN Reason: Constipation Diphenhydramine HCl (Benadryl) 25 mg PO Q4H PRN PRN Reason: Itching Last Admin: 03/15/16 09:26 Dose: 25 mg Multivitamins/Minerals 10 ml/Folic Acid 2 mg/ Magnesium Sulfate 2 g/ Thiamine HCl 100 mg/ Sodium Chloride 1,015.4 mls @ 100 mls/hr IV Q24H [facility] Last Admin: 03/14/16 20:16 Dose: 100 mls/hr Sodium Chloride (Sodium Chloride 0.9%) 100 mls @ 25 mls/hr IV PRN PRN PRN Reason: Flush Sodium Chloride (Sodium Chloride 0.9%) 1,000 mls @ 125 mls/hr IV .Q8H [facility] Last Admin: 03/15/16 08:51 Dose: Not Given Ceftriaxone Sodium/Dextrose 1 (g/ Premix (D5W) 50 ml) 50 mls @ 100 mls/hr IV Q24H [facility] Last Admin: 03/14/16 15:29 Dose: 100 mls/hr Promethazine HCl 6.25 mg/ (Sodium Chloride) 50.25 mls @ 200 mls/hr IV Q4H PRN PRN Reason: Nausea/Vomiting Last Admin: 03/12/16 20:36 Dose: 200 mls/hr Metronidazole 500 mg/ Sodium (Chloride) 100 mls @ 200 mls/hr IV Q8H [facility] Last Admin: 03/15/16 04:43 Dose: 200 mls/hr Lactated Ringer's (Lactated Ringers) 1,000 mls @ 100 mls/hr IV .Q10H [facility] Last Admin: 03/15/16 07:15 Dose: Not Given Lidocaine HCl (Lidocaine 2% Viscous) 15 ml PO X1 PRN PRN Reason: Anesthesia Lorazepam (Ativan) 0 mg IV PRN PRN; Protocol PRN Reason: Alcohol Withdrawal Last Admin: 03/15/16 01:47 Dose: 1 mg Magnesium Hydroxide (Milk Of Magnesia) 30 ml PO DAILY PRN PRN Reason: Constipation Ondansetron HCl (Zofran) 4 mg IV Q3H PRN PRN Reason: Nausea/Vomiting Last Admin: 03/14/16 15:30 Dose: 4 mg Pantoprazole Sodium (Protonix) 40 mg IV Q12H [facility] Last Admin: 03/15/16 04:44 Dose: 40 mg Petrolatum/Paraffin/Mineral Oil (Blistex) 1 each TP PRN PRN PRN Reason: Dry and/or chapped lips Sodium Chloride (Normal Saline 10ml Flush) 10 - 50 ml IV PRN PRN PRN Reason: IV Flush Last Admin: 03/15/16 04:44 Dose: 10 ml Sodium Chloride (Normal Saline 10ml Flush) 10 ml IV Q8HR [facility] Last Admin: 03/15/16 08:51 Dose: Not Given Tramadol HCl (Ultram) 50 mg PO Q4H PRN PRN Reason: Pain Last Admin: 03/15/16 04:01 Dose: 50 mg - Problems: Assessment/Plan (1) CAP (community acquired pneumonia) Status: Acute Assessment/Plan: Clinically resolving. Presumed bacterial with concern for aspiration given ETOH history and N/V. Sats good on RA. Minimal pulm s/sx. On rocephin/azithro, previously added Flagyl d/t concern for aspiration. Blood culture with GPC in clusters - Staph epidermidis on culture. R basilar opacity/atelectasis suggested on CXR. Consider revision to PO abx. (2) Abdominal pain Qualifiers: Abdominal location: epigastric Qualifier Code: (R10.13) Epigastric pain Status: Acute Assessment/Plan: Mid-epigastric pain continues as primary c/o. CT c/w marked gastritis/ esophagitis. Lipase not elevated. As per [facility] records had EGD/Colonoscopy last year for the same thing. Presumed recurrent esophagitis/gastritis exacerbated by ETOH and NSAID use. Continuing bid IV protonix (change to PO) and supportive care. Repeat upper endoscopy c/w esophagitis, appreciate Dr Pham's care; rec'd PPI , sucralfate. (3) Alcohol abuse Status: Chronic Assessment/Plan: No hx of withdrawal. Supportive care. [facility] protocol prn. varices not seen on upper endoscopy. (4) CKD (chronic kidney disease), stage III Status: Chronic Assessment/Plan: Cr 1.8->1.2 At baseline. (5) Chronic low back pain Qualifiers: Back pain laterality: unspecified Status: Chronic Assessment/Plan: As per records from [facility]- longstanding and fairly severe. S/P back surgery 03/23 at [place]. Chronic pain issues. Supportive care. (6) Hepatitis C Qualifiers: Viral hepatitis chronicity: chronic Status: Chronic Assessment/Plan: As per [facility] records- Long standing. Hx of liver bx in 2005. Supportive care. (7) Itching due to drug Status: Resolved Assessment/Plan: Suspected related to pain medication, resolved 03/14. Stopped oxycodone, switched to ultram (med pt on as outpt). (8) Renal mass Status: Acute Assessment/Plan: noted on CT. Will need follow up. Discussed with patient today, he expresses understanding VTE Prophylaxis: Mechanical due to concern for UGI bleed/esophagitis Disposition: Hope to return to home, poss 03/16
[2016-03-15 13:24] LABS: HELICOBACTER PYLORII DETECTION NEGATIVE (NEGATIVE)
[2016-03-15] MEDS: PANTOPRAZOLE 40 MG TABLET DR PO SCH ×2 (13:39→21:19)
[2016-03-15] MEDS: CEFUROXIME AXETIL 500 MG TABLET PO SCH ×2 (13:40→21:19)
[2016-03-15] MEDS: SUCRALFATE 1 G TABLET PO SCH ×2 (16:50→21:19)
[2016-03-16] MEDS ORDERED: ONDANSETRON 4 MG ODT TAB PO PRN (01:53)
[2016-03-16] MEDS ORDERED: ONDANSETRON 4 MG/2ML 2 ML VIAL IV PRN (01:53)
[2016-03-16] MEDS: TRAMADOL HCL 50 MG TABLET PO PRN (02:00)
[2016-03-16 06:08] LABS: HEMATOCRIT 38.8 % (32.0-52.0); HEMOGLOBIN 12.9 gm/l (14.0-18.0); MEAN CELL VOLUME 99.5 fl (80.0-94.0); MEAN CORPUSCULAR HEMOGLOBIN 33.1 pg (27.0-31.0); MEAN CORPUSCULAR HGB CONC 33.2 g/dl (33.0-37.0)
[2016-03-16 06:32] LABS: ALBUMIN 2.9 gm/dL (3.5-5.7); CALCIUM 8.6 mg/dL (8.6-10.3)
[2016-03-16] MEDS: SUCRALFATE 1 G TABLET PO SCH ×2 (08:07→11:35)
[2016-03-16] MEDS ORDERED: TRAMADOL HCL 50 MG TABLET PO PRN (08:12)
[2016-03-16] MEDS: CEFUROXIME AXETIL 500 MG TABLET PO SCH (08:27)
[2016-03-16] MEDS: PANTOPRAZOLE 40 MG TABLET DR PO SCH (08:27)
[2016-03-16] MEDS ORDERED: MULTIVIT W/ MINERALS 1 TAB TABLET PO SCH (09:00)
[2016-03-16] MEDS ORDERED: Potassium Chloride ORAL SOLN 20 MEQ/15 ML UDCUP PO SCH (10:00)
[2016-03-16] MEDS ORDERED: POTASSIUM CHLORIDE 40 MEQ in SODIUM CHLORIDE 0.9% 500 ML IV ONE (10:00)
[2016-03-16] MEDS: Potassium Chloride ORAL SOLN 20 MEQ/15 ML UDCUP PO ONE ×2 (11:34→11:43)
[2016-03-16] MEDS: POTASSIUM CHLORIDE 20 MEQ TAB.PRT.SR PO SCH ×2 (12:02→13:45)
[2016-03-16 14:27] VITALS: BP 148/82
--- NOTE | 2016-03-16 18:25 | DS ---
ANDREW ALAN [id number] DATE OF ADMISSION: March 11, 2016 DATE OF DISCHARGE: March 16, 2016 DISCHARGE DIAGNOSES: 1. Community acquired bacterial pneumonia. 2. Epigastric abdominal pain due to severe esophagitis. 3. Alcohol abuse, ongoing without evidence of withdrawal. 4. Chronic stage 3 kidney disease. 5. Chronic low back pain. 6. Chronic hepatitis C. 7. 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 PROCEDURES PERFORMED DURING THE HOSPITALIZATION: Included an upper endoscopy with biopsies under anesthesia performed on March 15, 2016 showing severe esophagitis. SUMMARY OF ADMISSION AND HOSPITAL COURSE: The patient is a 70-year-old male with medical problems as listed above who presented to the [facility] Emergency Department with complaints of epigastric pain and weakness. Workup in the emergency department included a CT scan of the abdomen and pelvis, chest x-ray and a soft tissue CT of the neck. His initial chest x-ray was read as normal. A followup chest x-ray done on March 12, 2016 did show a right upper lobe infiltrate consistent with pneumonia. He was referred to the hospitalist service and admitted with a diagnosis of pneumonia and was treated with Rocephin, Zithromax, and Flagyl. Subsequently during his stay, his antibiotics were narrowed to Ceftin orally. Because of some persistent epigastric pain, he underwent upper endoscopy showing severe esophagitis. Biopsies are pending. Soft tissue CT of the neck did not show any mass but diffuse esophageal wall thickening was seen. Patient's hospital course was prolonged because of epigastric pain and weakness. However, he refused to participate in physical therapy or occupational therapy. He was able to independently transfer himself out of bed and get to the bathroom without assistance. He was felt to be medically stable for discharge on March 16, 2016. PHYSICAL EXAM: VITAL SIGNS: His discharge vital signs showed a temperature of 98.8, pulse 81, blood pressure is 148/82, respirations 18, oxygen saturation 100% on room air. Body mass index 19.8. Weight is 62.7 kilograms. GENERAL: This is a thin elderly male in no acute distress. HEENT: Is unremarkable. LUNGS: Are clear to auscultation bilaterally. CARDIOVASCULAR: Exam reveals a regular rate and rhythm without a murmur. ABDOMEN: Is soft, nontender, nondistended with positive bowel sounds. EXTREMITIES: Show no peripheral edema. LABORATORY STUDIES: CBC last performed on March 16, 2016 showed a white count of 7.1, hemoglobin of 12.9, platelet count of 192,000. Chemistry profile showed a sodium of 141, potassium was low at 3.0, and creatinine was elevated at 1.5. He received three doses of potassium 20 mEq prior to discharge. DISPOSITION: Home. DISCHARGE CONDITION: Fair. DISCHARGE MEDICATIONS: Include: 1. Prilosec 20 mg twice daily. 2. Ceftin 500 mg twice daily for ten days. ALLERGIES: HE REPORTS TO: 1. GUAIFENESIN. 2. HYDROMORPHONE. REFERRALS: He was referred back to his primary care provider, Lorrie Tomas for followup. Faxed a copy of CAT scans and history to the [facility] recommending close followup with the renal mass to arrange for biopsy as an outpatient. I attempted to contact Dr. Tomas and left a message with this information with the customer care representative. Cc: [facility] attention Dr. Lorrie Tomas
--- NOTE | 2016-03-19 12:43 | SURGPATH ---
[facility] [address] [place] [id number] Patient Name: ANDREW ALAN MR#: [id number] : 1945 Gender: M Specimen #: [id number] Collected: 03/15/2016 Received: 03/17/2016 Reported: 03/19/2016 Submitting Phys: LEAH AVINA Copy To Phys: [facility] Clinical History / Pre-Operative Diagnosis: REFLUX ESOPHAGITIS AND GASTRITIS; H. PYLORI; RULE OUT ESOPHAGITIS AND VARICES Specimen Source / Surgical Procedure Performed: #1-ANTRAL; #2-ESOPHAGUS AT 36 CM Interpretation: 1. ANTRAL BIOPSY: - MINIMAL CHRONIC GASTRITIS WITH FOCAL REACTIVE MUCOSAL CHANGES. - IMMUNOHISTOCHEMICAL STAINING FOR HELICOBACTER NEGATIVE. 2. ESOPHAGEAL BIOPSY AT 36 CM: - FRAGMENTS OF INFLAMMATORY EXUDATE WITH MINIMAL DETACHED, BENIGN COLUMNAR EPITHELIUM. - PAS STAIN NEGATIVE FOR FUNGAL ORGANISMS. Electronically Signed Out Mary Carrillo M.D. Gross Description: #1 The specimen is received in a formalin filled container labeled with the patient's name and "antral". Two moore biopsies are 0.3 and 0.5 cm. Totally embedded in cassette #1. #2 The specimen is received in a formalin filled container labeled with the patient's name and "esophagitis". Four white agee biopsies are 0.2-0.5 cm. Totally embedded in cassette #2. Meagan Rosenbaum Microscopic Description: 1. Sections of the gastric biopsy show benign gastric mucosa with focal congestion of the lamina propria and minimal reactive mucosal changes. Focally, there is mildly increased chronic inflammation of the lamina propria with clustering of plasma cells. No active, acute inflammation is seen. There is no evidence of intestinal metaplasia or mucosal atrophy. No Helicobacter organisms are seen on the routinely stained sections. Immunohistochemical staining for Helicobacter is negative. The control stains appropriately. 2. Sections of the esophageal biopsy at 36 cm show acute inflammatory exudate with a few detached fragments of columnar-lined mucosa. No intact squamous mucosa is present. A PAS stain is negative for fungal organisms. The controls stain appropriately. (Analyte-specific reagents (ASR) are used in many laboratory tests necessary for standard medical care and generally do not require FDA approval. This test was developed and its performance characteristics determined by [facility]. It has not been cleared or approved by the U.S. Food and Drug Administration. [facility] is certified under the Clinical Laboratory Improvement Amendments of 1988 as qualified to perform high complexity clinical laboratory testing. All controls stain as expected.) 1: 87246, 76013 2: 89537, 46877 K29.30 K20.9
== END 2016-03-16 14:40 | disposition home or self-care (01) | DRG 871 ==
LOC: ED 12:41 → MS 15:24 → ICU 15:53 → MS 15:53
PROVIDERS: ADMIT Family Medicine; ATTEND Family Medicine
PROC: 0DB58ZX Excision of Esophagus, Via Natural or Artificial Opening Endoscopic, Diagnostic (ICD-10-PCS; principal; 2016-03-15)
DX: A41.9 Sepsis, unspecified organism (principal); J18.9 Pneumonia, unspecified organism; R65.21 Severe sepsis with septic shock; N17.9 Acute kidney failure, unspecified; M54.5 Low back pain; K29.70 Gastritis, unspecified, without bleeding; F10.20 Alcohol dependence, uncomplicated; N18.3 Chronic kidney disease, stage 3 (moderate); B19.20 Unspecified viral hepatitis C without hepatic coma; N28.89 Other specified disorders of kidney and ureter; M50.31 Other cervical disc degeneration, high cervical region; K44.9 Diaphragmatic hernia without obstruction or gangrene; K80.20 Calculus of gallbladder without cholecystitis without obstruction; M47.9 Spondylosis, unspecified; K22.70 Barrett's esophagus without dysplasia